=== PATIENT | female | born 1995 | race Caucasian/White ===

== ENCOUNTER 2017-01-31 21:36 | Emergency (ER) | payer BC, OTHER ==
[~2017-01-31] VITALS: Ht 157.5 cm; Wt 69.0 kg
[~2017-01-31 21:36] MED LIST: ATOM40CA PO; ATV/1 PO; BCPILLS PO; DIPH25CA65 PO
[2017-01-31 21:42] VITALS: TEMP 37.2; Ht 157.5 cm; Wt 69.0 kg
[2017-01-31] MEDS ORDERED: OXYCODONE/ACETAMINOPHEN 5-325 TAB PO STA (21:55)
[2017-01-31] MEDS ORDERED: PERCOCET HOME PACK PO ONE (22:00)
--- NOTE | 2017-01-31 22:02 | DIAGNOSTIC IMAGING REPORT ---
L ANKLE MIN 3 VIEWS ROUTINE CLINICAL HISTORY: Pt c/o left ankle pain pain COMPARISON: None. DISCUSSION: The bones and joint spaces appear intact. There is no evidence of fracture, dislocation or bony disease. There is no evidence for soft tissue swelling. IMPRESSION: Negative study. The above report was generated using voice recognition software. It may contain grammatical, syntax or spelling errors. Electronically signed by: Jason Smith M.D. 01/31/2017 10:01 PM Dictated Date/Time: 01/31/2017 10:00 PM
[2017-01-31] MEDS ORDERED: OXYC-57 PO (22:08)
--- NOTE | 2017-01-31 22:18 | EMERGENCY ROOM VISIT NOTE ---
History Report prepared by Brian: Thai Ren Under the Supervision of: Dr. Hermann Dudley M.D. First contact with patient: 21:46 Chief Complaint: ANKLE PAIN Stated Complaint: LEFT ANKLE PAIN, SWELLING History of Present Illness The patient is a 22 year old female who presents to the Emergency Room with complaints of constant left ankle pain that occurred prior to arrival. She rates her discomfort as a 9/10 in severity. The patient admits that her pain is worsened with walking. The patient states that she was picking up food when she missed the edge. She states that she felt her ankle twist as she missed her step. The patient states that since the accident, she has been experiencing ankle pain and is unable to walk. 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 A total of 10 systems reviewed and were otherwise negative. Past Medical & Surgical Medical Problems: (1) ADHD (attention deficit hyperactivity disorder) (2) Anxiety Social History Problems: (1) Uses control Family History Cancer Diabetes mellitus Heart disease Hypertension Lung disease Social History Smoking Status: Never Smoker Alcohol Use: none Drug Use: none Marital Status: single Housing Status: lives with family Occupation Status: unemployed Current/Historical Medications Scheduled Atomoxetine (Strattera), 40 MG PO DAILY Control Pills ( Control Pills), 1 TAB PO HS Scheduled PRN Diphenhydramine Hcl (Benadryl Allergy), 25 MG PO for ALLERGIC REACTION Lorazepam (Ativan), 1 MG PO for Anxiety Oxycodone/Acetaminophen 5MG/325MG (Percocet 5MG/325MG), 1-2 TAB PO Q4H PRN for Pain Allergies Coded Allergies: NO KNOWN DRUG ALLERGIES (Verified Allergy, Unknown, none, 04/03/15) Physical Exam Vital Signs Date Time Temp Pulse Resp B/P (MAP) Pulse Ox O2 Delivery O2 Flow Rate FiO2 01/31/17 22:26 78 18 138/82 98 Room Air 01/31/17 21:42 37.2 88 18 111/69 98 Room Air Physical Exam GENERAL: Patient is a healthy-appearing well-nourished 22 year old female HEAD: Normocephalic atraumatic EYES: Ocular movements intact pupils equal and react to light OROPHARYNX mucous membranes are moist no exudates present no erythema or edema present NECK: Supple no nuchal rigidity CHEST: Good equal expansion LUNGS: Clear and equal to auscultation CARDIAC: Normal S1 and S2 ABDOMEN: Soft nontender no guarding BACK: No CVA tenderness EXTREMITIES: No pain upon palpation normal muscle strength in all groups no clubbing cyanosis or edema. No swelling to lateral or medial malleolus. Good ROM of knee and ankle. Tenderness to first metatarsal area. NEURO: Patient is following commands and answering questions appropriately. Alert and oriented x3 Cranial Nerves 2-12 grossly intact Medical Decision & Procedures ER Provider Diagnostic Interpretation: X-ray results as stated below per interpretation by me and the radiologist: L ANKLE MIN 3 VIEWS ROUTINE CLINICAL HISTORY: Pt c/o left ankle pain pain COMPARISON: None. DISCUSSION: The bones and joint spaces appear intact. There is no evidence of fracture, dislocation or bony disease. There is no evidence for soft tissue swelling. IMPRESSION: Negative study. The above report was generated using voice recognition software. It may contain grammatical, syntax or spelling errors. Electronically signed by: Jason Smith M.D. 01/31/2017 10:01 PM Dictated Date/Time: 01/31/2017 10:00 PM Medications Administered Medications (Trade) Dose Ordered Sig/Paco Route Start Time Stop Time Status Last Admin Dose Admin Oxycodone/ Acetaminophen (Percocet 5/ 325MG Home Pack) 1 homepack UD ONCE PO 01/31/17 22:00 01/31/17 22:01 DC 01/31/17 22:18 1 HOMEPACK Oxycodone/ Acetaminophen (Percocet 5-325mg Tab) 2 tab NOW STAT PO 01/31/17 21:55 01/31/17 21:57 DC 01/31/17 22:19 2 TAB ED Course 2154: Past medical records reviewed. The patient was evaluated in room D04. A complete history and physical examination was performed. 2154: Ordered Oxycodone/ Acetaminophen 2 tab PO. 2199: Ordered Oxycodone/ Acetaminophen 1 homepack PO. 2212: Upon reexamination the patient is doing well. I discussed results and treatment plan with the patient. She verbalizes agreement and understanding. The patient is ready for discharge. Medical Decision The differential diagnosis includes etiologies such as: fracture, dislocation, and subluxation. This is 22-year-old female who presents emergency department complaining of ankle pain. The patient was given Percocet for her pain in the emergency department. X-rays do not show any evidence of fracture dislocation or subluxation. Based on these findings I felt that the patient can be placed on crutches as well as a hard sole shoe to follow-up with orthopedics. Patient was in agreement with the treatment plan. Medication Reconcilliation Current Medication List: was personally reviewed by me Blood Pressure Screening Patient's blood pressure: Normal blood pressure Impression Primary Impression: Left ankle pain Scribe Attestation The scribe's documentation has been prepared under my direction and personally reviewed by me in its entirety. I confirm that the note above accurately reflects all work, treatment, procedures, and medical decision making performed by me. Departure Information Dispostion Home / Self-Care Prescriptions Oxycodone/Acetaminophen 5MG/325MG (PERCOCET 5MG/325MG) Tab 1-2 TAB PO Q4H Y for Pain, #14 TAB Prov: Hermann Dudley MD 01/31/17 Referrals Brent Hernandez M.D. (PCP) Forms HOME CARE DOCUMENTATION FORM, IMPORTANT VISIT INFORMATION Patient Instructions Ankle Inversion, Ankle Sprain, ED Crutch Walking, [facility] Additional Instructions Follow up with DR Perry's office You received narcotic or benzodiazepene medication while in the emergency room today. This is an addictive medication that may cause drowziness as well as constipation. Do not drive, operate heavy machinery, or drink alcohol under the influence of this medication. Take 600 mg Ibuprofen every 6 hours Take Percocet for breakthrough pain You have been examined and treated today on an emergency basis only. This is not a substitute for, or an effort to provide, complete comprehensive medical care. It is impossible to recognize and treat all injuries or illnesses in a single emergency department visit. It is therefore important that you follow up closely with Dr Hernandez. Call as soon as possible for an appointment. Thank you for your time and consideration. I look forward to speaking with you again soon. Please don't hesitate to call us if you have any questions. Problem Qualifiers Primary Impression: Left ankle pain Chronicity: acute Qualified Codes: M25.572 - Pain in left ankle and joints of left foot
[2017-01-31 22:26] VITALS: BP 138/82; PULSE 78; O2SAT 98
== END 2017-01-31 22:27 | disposition home or self-care (01) ==
LOC: C.EDB 21:38 → C.EDD 22:27
DX: M25.572 Pain in left ankle and joints of left foot (principal); X50.1XXA Overexertion from prolonged static or awkward postures, initial encounter; Y92.9 Unspecified place or not applicable; F90.9 Attention-deficit hyperactivity disorder, unspecified type; F41.9 Anxiety disorder, unspecified; Z80.9 Family history of malignant neoplasm, unspecified; Z83.3 Family history of diabetes mellitus; Z82.49 Family history of ischemic heart disease and other diseases of the circulatory system; Z83.6 Family history of other diseases of the respiratory system; Z79.3 Long term (current) use of hormonal contraceptives; Z79.899 Other long term (current) drug therapy